=== PATIENT | male | born 1950 | race Two or more races ===

== ENCOUNTER 2017-06-16 07:09 | Day surgery (SDC) | payer OTHER ==
[~2017-06-16] VITALS: Ht 172.7 cm; Wt 88.5 kg
[2017-06-16 07:41] VITALS: BP 145/84
[2017-06-16 10:20] VITALS: BP 132/79
== END 2017-06-16 10:45 | disposition home or self-care (01) ==
LOC: DS 07:09 → OR 08:30 → GI 08:30 → DS 10:45
PROVIDERS: Internal Medicine Gastroenterology
PROC: 0DBP8ZZ Excision of Rectum, Via Natural or Artificial Opening Endoscopic (ICD-10-PCS; principal; 2017-06-16 08:30)
PROC: 0DBK8ZZ Excision of Ascending Colon, Via Natural or Artificial Opening Endoscopic (ICD-10-PCS; 2017-06-16 08:30)
DX: Z12.11 Encounter for screening for malignant neoplasm of colon (principal); D12.2 Benign neoplasm of ascending colon; K62.1 Rectal polyp; K57.30 Diverticulosis of large intestine without perforation or abscess without bleeding; K64.8 Other hemorrhoids
CPT/HCPCS: 45378; J1200; J1610; J2250; J2310; J3010; J3490